=== PATIENT | male | born 1965 | race Caucasian/White ===

== ENCOUNTER 2018-11-21 01:12 | Inpatient (IN) | payer OTHER ==
[2018-11-21 01:31] LABS: WHITE BLOOD COUNT 9.4 10^3/ul (4.8-10.8)
[2018-11-21 01:31] LABS: ABNORMAL IP MESSAGE 1; HEMATOCRIT 18.4 % (42.0-52.0); MEAN CORPUSCULAR HEMOGLOBIN 27.1 pg (29.0-33.0); MEAN CORPUSCULAR HGB CONC 31.5 g/dl (32.0-37.0); MEAN PLATELET VOLUME 11.5 fl (7.4-10.4); NUCLEATED RED BLOOD CELLS% 0.2 /100WBC (0.0-0.0); PLATELET COUNT 255 10^3/UL (140-415); POSITIVE DIFF @See below; RED BLOOD COUNT 2.14 10^6/ul (4.70-6.10); RED CELL DISTRIBUTION WIDTH 22.1 % (11.5-14.5)
[2018-11-21] MEDS: SOD CHLORIDE 0.9% 1,000 ML IV (01:34)
[2018-11-21 01:40] LABS: HEMOGLOBIN 5.8 g/dl (14.0-18.0)
[2018-11-21 01:41] LABS: ADD MAN DIFF? YES; PATH REVIEW? YES
[2018-11-21 01:51] LABS: INR 1.44; PARTIAL THROMBOPLASTIN TIME 31.3 Sec (23.0-35.0); PROTIME 17.6 Sec (11.9-14.9); PT RATIO 1.4
[2018-11-21 01:54] LABS: ALANINE AMINOTRANSFERASE 61 IU/L (13-69); ALBUMIN 1.7 g/dl (3.3-4.9); ALBUMIN/GLOBULIN RATIO 0.68; ALKALINE PHOSPHATASE 214 IU/L (42-121); ANION GAP 6 (5-13); ASPARTATE AMINO TRANSFERASE 45 IU/L (15-46); BILIRUBIN,INDIRECT 0.4 mg/dl (0-1.1); BILIRUBIN,TOTAL 0.4 mg/dl (0.2-1.3); BLOOD UREA NITROGEN 41 mg/dl (7-20); CALCIUM 7.4 mg/dl (8.4-10.2); CARBON DIOXIDE 21 mmol/L (21-31); CHLORIDE 107 mmol/L (97-110); CREATININE 0.96 mg/dl (0.61-1.24); Estimated GFR > 60 mL/min (>60); GLUCOSE 232 mg/dl (70-220); SODIUM 134 mmol/L (135-144); TOTAL PROTEIN 4.2 g/dl (6.1-8.1)
[2018-11-21 02:05] LABS: B-TYPE NATRIURETIC PEPTIDE 16400 PG/ML (0-125); TROPONIN-I 0.041 ng/ml (0.000-0.120)
[2018-11-21] MEDS ORDERED: ONDANSETRON 4 MG INJ IV (02:30)
[2018-11-21] MEDS ORDERED: ACETAMINOPHEN 325 MG TAB PO (02:30)
[2018-11-21 03:01] LABS: ANISOCYTOSIS 1+ (0-0); ECHINOCYTOSIS 1+ (0-0); ELLIPTO 1+ (0-0); EOSINOPHILS % (M) 1 % (0-7); GIANT THROMBO% (M) 3 % (0-0); HYPOCHROMASIA 1+ (0-0); LYMPHOCYTES #M 0.5 10^3/ul (0.8-2.9); LYMPHOCYTES % (M) 6 % (15-51); MONOCYTE #M 0.4 10^3/ul (0.3-0.9); MONOCYTES % (M) 5 % (0-11); PLATELET ESTIMATE NORMAL; POIKILOCYTOSIS 2+ (0-0); POLYCHROMASIA 3+ (0-0); SEGMENTED NEUTROPHILS (M) % 88 % (39-77); TEAR DROP CELLS 1+ (0-0)
[2018-11-21 05:12] LABS: IMMEDIATE SPIN CROSSMATCH 1 5
[2018-11-21] MEDS ORDERED: ALBUTEROL/IPRATROPIUM (NEB) 3 ML AMP NEB (05:30)
[2018-11-21] MEDS ORDERED: ACETAMINOPHEN 650MG/20.3ML CUP PO (05:30)
[2018-11-21] MEDS ORDERED: NORepinephrine 8MG/250 ML (PMX 250 ML IV (05:30)
[2018-11-21] MEDS: ALBUMIN HUMAN 25% 100 ML IV ×3 (05:30→21:10)
[2018-11-21] MEDS ORDERED: VANCOMYCIN IV PER PHARMACY XX ×2 (06:30→09:00)
[2018-11-21] MEDS: LIDOCAINE 1% (MPF) 5 ML VIAL SC (07:00)
[2018-11-21] MEDS: INSULIN ASPART [NOVOLOG] 3 ML PEN SC ×4 (07:51→20:44)
[2018-11-21 08:35] LABS: ADD MAN DIFF? NO
[2018-11-21 08:38] LABS: WHITE BLOOD COUNT 10.6 10^3/ul (4.8-10.8)
[2018-11-21 08:38] LABS: BASOPHILS % 0.1 % (0.0-2.0); EOSINOPHILS % 0.1 % (0.0-7.0); HEMOGLOBIN 7.4 g/dl (14.0-18.0); LYMPHOCYTES # 0.8 10^3/ul (0.8-2.9); LYMPHOCYTES % 7.9 % (15.0-51.0); MEAN CORPUSCULAR HGB CONC 33.6 g/dl (32.0-37.0); MEAN CORPUSCULAR VOLUME 83.3 fl (82.0-101.0); MEAN PLATELET VOLUME 11.4 fl (7.4-10.4); MONOCYTE # 0.8 10^3/ul (0.3-0.9); MONOCYTES % 7.9 % (0.0-11.0); NEUTROPHIL # 8.8 10^3/ul (1.6-7.5); NEUTROPHILS % 83.4 % (39.0-77.0); PLATELET COUNT 194 10^3/UL (140-415); RED BLOOD COUNT 2.64 10^6/ul (4.70-6.10); RED CELL DISTRIBUTION WIDTH 18.6 % (11.5-14.5)
[2018-11-21] MEDS: VANCOMYCIN HCL 1.75 GM in SOD CHLORIDE 0.9% 500 ML IVPB (08:38)
[2018-11-21 08:49] LABS: HEMOGLOBIN A1C 7.3 % (0-5.9)
[2018-11-21 09:00] LABS: ALANINE AMINOTRANSFERASE 57 IU/L (13-69); ALBUMIN 2.2 g/dl (3.3-4.9); ALBUMIN/GLOBULIN RATIO 0.88; ALKALINE PHOSPHATASE 191 IU/L (42-121); ANION GAP 5 (5-13); ASPARTATE AMINO TRANSFERASE 37 IU/L (15-46); BLOOD UREA NITROGEN 35 mg/dl (7-20); CALCIUM 7.6 mg/dl (8.4-10.2); CARBON DIOXIDE 22 mmol/L (21-31); CHLORIDE 108 mmol/L (97-110); CREATININE 0.74 mg/dl (0.61-1.24); Estimated GFR > 60 mL/min (>60); GLUCOSE 201 mg/dl (70-220); MAGNESIUM 1.5 mg/dl (1.7-2.5); POTASSIUM 3.9 mmol/L (3.5-5.1); SODIUM 135 mmol/L (135-144); TOTAL PROTEIN 4.7 g/dl (6.1-8.1)
[2018-11-21] MEDS ORDERED: NA POLYST SULFON 15 GM/60 ML BTL PO (09:00)
[2018-11-21] MEDS: FUROSEMIDE 20 MG INJ IV ×3 (09:00→17:38)
[2018-11-21] MEDS: PIPER-TAZO 3.375 GM IV (PMX) 100 ML IVPB ×3 (09:00→17:38)
[2018-11-21] MEDS: CEFTRIAXONE 1 GM/50 ML (PMX) 50 ML IVPB (12:00)
[2018-11-21 12:13] LABS: ADD MAN DIFF? NO
[2018-11-21 12:17] LABS: WHITE BLOOD COUNT 9.4 10^3/ul (4.8-10.8)
[2018-11-21 12:17] LABS: ABNORMAL IP MESSAGE 1; BASOPHILS % 0.1 % (0.0-2.0); EOSINOPHILS % 0.3 % (0.0-7.0); HEMATOCRIT 20.6 % (42.0-52.0); LYMPHOCYTES % 10.3 % (15.0-51.0); MEAN CORPUSCULAR HGB CONC 33.5 g/dl (32.0-37.0); MEAN CORPUSCULAR VOLUME 83.7 fl (82.0-101.0); MEAN PLATELET VOLUME 11.5 fl (7.4-10.4); MONOCYTE # 0.9 10^3/ul (0.3-0.9); MONOCYTES % 9.2 % (0.0-11.0); NEUTROPHIL # 7.5 10^3/ul (1.6-7.5); NEUTROPHILS % 79.6 % (39.0-77.0); PLATELET COUNT 169 10^3/UL (140-415); POSITIVE DIFF @See below; RED BLOOD COUNT 2.46 10^6/ul (4.70-6.10); RED CELL DISTRIBUTION WIDTH 18.4 % (11.5-14.5)
[2018-11-21 12:24] LABS: HEMOGLOBIN 6.9 g/dl (14.0-18.0)
[2018-11-21 12:32] LABS: ANION GAP 6 (5-13); BLOOD UREA NITROGEN 32 mg/dl (7-20); CALCIUM 7.5 mg/dl (8.4-10.2); CARBON DIOXIDE 22 mmol/L (21-31); CHLORIDE 108 mmol/L (97-110); CREATININE 0.63 mg/dl (0.61-1.24); Estimated GFR > 60 mL/min (>60); GLUCOSE 165 mg/dl (70-220); POTASSIUM 3.7 mmol/L (3.5-5.1); SODIUM 136 mmol/L (135-144)
[2018-11-21] MEDS: METOLAZONE 5 MG TAB PO (13:44)
[2018-11-21] MEDS: VANCOMYCIN 1 GM (PMX) 250 ML IVPB (20:40)
[2018-11-22] MEDS: PIPER-TAZO 3.375 GM IV (PMX) 100 ML IVPB ×2 (00:40→05:39)
[2018-11-22] MEDS: ACCU-CHEK XX (01:49)
[2018-11-22 05:14] LABS: ADD MAN DIFF? NO
[2018-11-22 05:16] LABS: BASOPHILS % 0.3 % (0.0-2.0); EOSINOPHILS # 0.1 10^3/ul (0.0-0.5); EOSINOPHILS % 0.8 % (0.0-7.0); HEMATOCRIT 27.4 % (42.0-52.0); HEMOGLOBIN 9.1 g/dl (14.0-18.0); LYMPHOCYTES # 1.2 10^3/ul (0.8-2.9); LYMPHOCYTES % 10.2 % (15.0-51.0); MEAN CORPUSCULAR HEMOGLOBIN 27.7 pg (29.0-33.0); MEAN CORPUSCULAR HGB CONC 33.2 g/dl (32.0-37.0); MEAN CORPUSCULAR VOLUME 83.5 fl (82.0-101.0); MEAN PLATELET VOLUME 11.4 fl (7.4-10.4); MONOCYTES % 8.8 % (0.0-11.0); NEUTROPHILS % 79.4 % (39.0-77.0); PLATELET COUNT 198 10^3/UL (140-415); RED BLOOD COUNT 3.28 10^6/ul (4.70-6.10); RED CELL DISTRIBUTION WIDTH 18.4 % (11.5-14.5)
[2018-11-22 05:16] LABS: WHITE BLOOD COUNT 11.3 10^3/ul (4.8-10.8)
[2018-11-22 05:32] LABS: ANION GAP 6 (5-13); BLOOD UREA NITROGEN 26 mg/dl (7-20); CALCIUM 8.1 mg/dl (8.4-10.2); CARBON DIOXIDE 26 mmol/L (21-31); CHLORIDE 103 mmol/L (97-110); CREATININE 0.77 mg/dl (0.61-1.24); Estimated GFR > 60 mL/min (>60); GLUCOSE 164 mg/dl (70-220); MAGNESIUM 1.4 mg/dl (1.7-2.5); PHOSPHORUS 2.6 mg/dl (2.5-4.9); POTASSIUM 3.5 mmol/L (3.5-5.1); SODIUM 135 mmol/L (135-144)
[2018-11-22] MEDS: FUROSEMIDE 20 MG INJ IV ×2 (05:40→17:57)
[2018-11-22] MEDS: MAGNESIUM SULFATE 1 GM/D5W 100 ML IVPB (08:04)
[2018-11-22] MEDS: INSULIN ASPART [NOVOLOG] 3 ML PEN SC ×3 (08:06→17:42)
[2018-11-22] MEDS: METOLAZONE 5 MG TAB PO (09:15)
[2018-11-22] MEDS: CEFTRIAXONE 1 GM/50 ML (PMX) 50 ML IVPB (09:15)
[2018-11-22] MEDS: VANCOMYCIN 1 GM (PMX) 250 ML IVPB (09:23)
[2018-11-22] MEDS ORDERED: PENDING SANTYL ORDER FOR WOUND CARE XX (17:30)
[2018-11-22] MEDS ORDERED: BALSAM PERU/CASTOR OIL 60 GM TUBE TOP (21:00)
[2018-11-23] MEDS ORDERED: COLLAGENASE 5 GM (UD JAR) TOP (09:00)
== END 2018-11-22 20:00 | disposition short-term general hospital (02) | DRG 811 ==
LOC: TEL 11-22 14:38 → E/R 01:12 → ICU 02:29
PROC: 30233N1 Transfusion of Nonautologous Red Blood Cells into Peripheral Vein, Percutaneous Approach (ICD-10-PCS; principal; 2018-11-21)
PROC: 02HV33Z Insertion of Infusion Device into Superior Vena Cava, Percutaneous Approach (ICD-10-PCS; 2018-11-21)
DX: D62 Acute posthemorrhagic anemia (principal); I50.23 Acute on chronic systolic (congestive) heart failure; L03.116 Cellulitis of left lower limb; L03.115 Cellulitis of right lower limb; L97.211 Non-pressure chronic ulcer of right calf limited to breakdown of skin; L97.821 Non-pressure chronic ulcer of other part of left lower leg limited to breakdown of skin; L97.311 Non-pressure chronic ulcer of right ankle limited to breakdown of skin; E87.1 Hypo-osmolality and hyponatremia; I87.2 Venous insufficiency (chronic) (peripheral); E13.51 Other specified diabetes mellitus with diabetic peripheral angiopathy without gangrene; E11.622 Type 2 diabetes mellitus with other skin ulcer; I11.0 Hypertensive heart disease with heart failure; I25.10 Atherosclerotic heart disease of native coronary artery without angina pectoris; E78.5 Hyperlipidemia, unspecified; B96.5 Pseudomonas (aeruginosa) (mallei) (pseudomallei) as the cause of diseases classified elsewhere; B95.2 Enterococcus as the cause of diseases classified elsewhere; B95.61 Methicillin susceptible Staphylococcus aureus infection as the cause of diseases classified elsewhere; Z79.4 Long term (current) use of insulin; Z95.1 Presence of aortocoronary bypass graft; Z87.891 Personal history of nicotine dependence
CPT/HCPCS: 36415; 36430; 36569; 71045; 76937; 80048; 80053; 82962; 83036; 83735; 83880; 84100; 84484; 85025; 85610; 85730; 86850; 86900; 86901; 86920; 87070; 87081; 93005; 93306; 93922; 93970; 99285-25